=== PATIENT | female | born 1955 | race Caucasian/White ===

== ENCOUNTER 2022-01-10 20:25 | Emergency (ER) | payer MEDICARE ==
--- NOTE | 2022-01-10 20:52 | ERPHSYRPT ---
- History of Present Illness Time Seen by Provider: 01/10/22 20:35 Source: patient Exam Limitations: no limitations Patient Subjective Stated Complaint: pt states she was cooking and grabbed the hadle of the pot with her left hand not realizing it was hot. pt is alert and oriented, rating pain at 9/10 Triage Nursing Assessment: palm of left hand is red and pt states pain is 9/10, pt holding cool rag on hand. Physician History: Patient is a 66-year-old female presents to our ED for evaluation of a burn to her left hand. Patient states she was cooking and grabbed the handle of a pot with her left hand. Patient complains of pain to her left hand. Palm is red and tender. Injury occurred just prior to arrival. Pain is 9 out of 10. Symptoms are constant. Symptoms are moderate in intensity. Palpation reproduce s symptoms. No trauma. No indication for x-ray at this time. Tetanus up-to-date. Patient voices no other complaints or concerns at this time. at bedside. Timing/Duration: today Severity: moderate Modifying Factors: Improves With: nothing Associated Symptoms: denies symptoms Allergies/Adverse Reactions: No Known Drug Allergies Allergy (Unverified 01/10/22 20:40) Hx Tetanus, Diphtheria Vaccination/Date Given: (unknown) Hx Influenza Vaccination/Date Given: Yes Hx Pneumococcal Vaccination/Date Given: No Travel Risk - International Travel Have you traveled outside of the country in past 3 weeks: No - Coronavirus Screening Are you exhibiting any of the following symptoms?: No Close contact with a COVID-19 positive Pt in past 14-21 Days: No - Vaccine Status Have you recieved a Covid-19 vaccination: Yes 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[employer] - Vaccination Dates Date of 2cond Vaccination (if applicable): unknown - Review of Systems Constitutional: No Symptoms, No Fever, No Chills Eyes: No Symptoms Ears, Nose, & Throat: No Symptoms Respiratory: No Symptoms, No Cough, No Dyspnea Cardiac: No Symptoms, No Chest Pain, No Edema, No Syncope Abdominal/Gastrointestinal: No Symptoms, No Abdominal Pain, No Nausea, No Vomiting, No Diarrhea Genitourinary Symptoms: No Symptoms, No Dysuria Musculoskeletal: No Symptoms, No Back Pain, No Neck Pain Skin: No Symptoms, No Rash Neurological: No Symptoms, No Dizziness, No Focal Weakness, No Sensory Changes Psychological: No Symptoms Endocrine: No Symptoms Hematologic/Lymphatic: No Symptoms Immunological/Allergic: No Symptoms All Other Systems: Reviewed and Negative - Past Medical History Pertinent Past Medical History: Yes Other Medical History: hysyerectomy - Past Surgical History Past Surgical History: Yes Gastrointestinal: Appendectomy - Social History Smoking Status: Light tobacco smoker Drug Use: none - Nursing Vital Signs Nursing Vital Signs: Initial Vital Signs Respiratory Rate 18 01/10/22 20:29 Blood Pressure 188/94 01/10/22 20:29 O2 Sat by Pulse Oximetry 98 01/10/22 20:29 Pain Scale Pain Intensity 4 - Physical Exam General Appearance: no apparent distress, alert Eye Exam: PERRL/EOMI, eyes nml inspection Ears, Nose, Throat Exam: normal ENT inspection, TMs normal, pharynx normal, moist mucous membranes Neck Exam: normal inspection, non-tender, supple, full range of motion Respiratory Exam: normal breath sounds, lungs clear, airway intact, No respiratory distress Cardiovascular Exam: regular rate/rhythm, normal heart sounds, normal peripheral pulses Gastrointestinal/Abdomen Exam: soft, normal bowel sounds, No tenderness, No mass Back Exam: normal inspection, normal range of motion, No CVA tenderness, No vertebral tenderness Extremity Exam: normal inspection, normal range of motion (The burn is 1% of total body surface area. It appears to be a superficial partial-thickness burn), pelvis stable, other (The burn of the left hand is 1% of total body surface area.) Neurologic Exam: alert, oriented x 3, cooperative, normal mood/affect, nml cerebellar function, nml station & gait, sensation nml, No motor deficits Skin Exam: normal color, warm, dry, No rash Lymphatic Exam: No adenopathy SpO2 Interpretation: normal SpO2: 98 O2 Delivery: Room Air - Course Nursing assessment & vital signs reviewed: Yes Ordered Tests: Medication Summary Discontinued Medications Generic Name Dose Route Start Last Admin Trade Name Freq PRN Reason Stop Dose Admin Bacitracin Zinc 0.9 each 01/10/22 21:09 01/10/22 21:49 Bacitracin Packet 1 Each Pckt TP 01/10/22 21:10 0.9 each STAT ONE Administration Bacitracin Zinc Confirm 01/10/22 21:49 Bacitracin Packet 1 Each Pckt Administered 01/10/22 21:50 Dose 1 each .ROUTE .STK-MED ONE Diphtheria/Tetanus/Acell Pertussis 0.5 ml 01/10/22 21:07 01/10/22 21:18 Tdap --Diph,Pertuss(Acell),Tet Vac/Pf 0.5 Ml Vial IM 01/10/22 21:08 0.5 ml .ONCE ONE Administration Diphtheria/Tetanus/Acell Pertussis Confirm 01/10/22 21:16 Tdap --Diph,Pertuss(Acell),Tet Vac/Pf 0.5 Ml Vial Administered 01/10/22 21:17 Dose 0.5 ml IM .STK-MED ONE Ketorolac Tromethamine 30 mg 01/10/22 21:06 01/10/22 21:26 Ketorolac Tromethamine 30 Mg/Ml Inj IM 01/10/22 21:07 30 mg STAT ONE Administration Ketorolac Tromethamine Confirm 01/10/22 21:10 Ketorolac Tromethamine 30 Mg/Ml Inj Administered 01/10/22 21:11 Dose 30 mg .ROUTE .STK-MED ONE Morphine Sulfate 4 mg 01/10/22 21:06 01/10/22 22:00 Morphine Sulfate 4 Mg/Ml Injection IM 01/10/22 21:07 4 mg STAT ONE Administration Morphine Sulfate Confirm 01/10/22 21:11 Morphine Sulfate 4 Mg/Ml Injection Administered 01/10/22 21:12 Dose 4 mg .ROUTE .STK-MED ONE Ondansetron HCl 4 mg 01/10/22 21:07 01/10/22 21:12 Zofran 4 Mg/Udtablet Orally Disintegrating PO 01/10/22 21:08 4 mg STAT ONE Administration Ondansetron HCl Confirm 01/10/22 21:11 Zofran 4 Mg/Udtablet Orally Disintegrating Administered 01/10/22 21:12 Dose 4 mg .ROUTE .STK-MED ONE - Progress Progress: improved Progress Note: Rings removed from involved hand. 01/10/22 21:09 Case discussed with [facility] [place] nurse practitioner who states there is no indication for transfer in light of the mechanism of injury and the description of patient's burn. However they will see patient tomorrow in the clinic at 8 AM. [facility] telephone number is [phone] 01/10/22 23:06 Portions of this note were created with voice recognition technology. There may be grammatical, spelling, punctuation or sound alike errors 01/10/22 23:24 Patient sent home with 4 Austin pills. Patient also can supplement the [place] with ibuprofen as directed 01/10/22 23:27 Counseled pt/family regarding: diagnosis, need for follow-up - Departure Departure Disposition: Home Clinical Impression: Burn of hand Condition: Stable Critical Care Time: No Referrals: DOCTOR,NO FAMILY [Primary Care Provider] - Follow up/PCP as directed Additional Instructions: Please follow-up at [facility] tomorrow morning at 8 AM. Their office number is [phone]. They are open Sunday through Sunday. The address is [address] [place] [address] Discharge/Care Plan KELTON DURANT was seen on 01/10/22 in the Emergency Room. The patient was counseled regarding Diagnosis,Lab results, Imaging studies, need for follow up and when to return to the Emergency Room. Prescriptions given: Discharge Note I have spoken with the patient and/or caregivers. I have explained the patient's condition, diagnosis and treatment plan based on the information available to me at this time. I have answered the patient's and/or caregiver's questions and addressed any concerns. The patient and/or caregivers have as good understanding of the patient's diagnosis, condition and treatment plan as can be expected at this point. The vital signs have been stable. The patient's condition is stable and appropriate for discharge from the emergency department. The patient will pursue further outpatient evaluation with the primary care physician or other designated or consulting physician as outlined in the dis charge instructions. The patient and/or caregivers are agreeable to this plan of care and follow-up instructions have been explained in detail. The patient and/or caregivers have received these instruction. The patient/and or caregivers are aware that any significant change in condition or worsening of symptoms should prompt an immediate return to this or the closest emergency department or call 911.
[2022-01-10] MEDS ORDERED: MORPHINE SULFATE 4 MG INJ IM ONE (21:06)
[2022-01-10] MEDS ORDERED: TORAdol 30 mg Injection IM ONE (21:06)
[2022-01-10] MEDS ORDERED: Adacel Vial IM ONE ×2 (21:07→21:16)
[2022-01-10] MEDS ORDERED: ZOFRAN ODT 4 MG PO ONE (21:07)
[2022-01-10] MEDS ORDERED: BACIGUENT PACKET TP ONE (21:09)
[2022-01-10] MEDS ORDERED: TORAdol 30 mg Injection ONE (21:10)
[2022-01-10] MEDS ORDERED: MORPHINE SULFATE 4 MG INJ ONE (21:11)
[2022-01-10] MEDS ORDERED: ZOFRAN ODT 4 MG ONE (21:11)
[2022-01-10] MEDS ORDERED: BACIGUENT PACKET ONE (21:49)
[2022-01-10 23:08] VITALS: O2SAT 98
[2022-01-10 23:21] VITALS: BP 126/69; PULSE 84
[2022-01-10] MEDS ORDERED: NORCO 5/325 MG PO ONE (23:22)
[2022-01-10] MEDS ORDERED: NORCO 5/325 MG ONE ×2 (23:25→23:27)
== END 2022-01-10 23:45 | disposition home or self-care (01) ==
LOC: ED 20:25
DX: T23.252A Burn of second degree of left palm, initial encounter (principal); T31.0 Burns involving less than 10% of body surface; X15.3XXA Contact with hot saucepan or skillet, initial encounter; Y93.G3 Activity, cooking and baking; Y92.000 Kitchen of unspecified non-institutional (private) residence as the place of occurrence of the external cause; M79.642 Pain in left hand; Z72.0 Tobacco use
CPT/HCPCS: 90471; 90715; 96372; 99284; J1885; J2270; Q0162; A9270-GY